=== PATIENT | male | born 1955 | race Caucasian/White ===

== ENCOUNTER 2016-10-31 06:11 | Emergency (ER) | payer SELFPAY | END 2016-10-31 08:00 | disposition EXP | LOC: CED 06:11 → CFTX 07:16 | DX: I46.9 Cardiac arrest, cause unspecified (principal); I49.9 Cardiac arrhythmia, unspecified; I10 Essential (primary) hypertension; Z98.890 Other specified postprocedural states | CPT/HCPCS: 82947; 92950; 93005; 99285; J0171 ==